=== PATIENT | male | born 1965 | race American Indian/Alaskan Native ===

== ENCOUNTER 2017-03-13 13:26 | Emergency (ER) | payer OTHER ==
[2017-03-13 14:54] VITALS: BP 141/82
--- NOTE | 2017-03-13 17:22 | XRay Report ---
FINAL REPORT PROCEDURE: XR WRIST 2V RT TECHNIQUE: Two views of the right wrist are obtained HISTORY: right wrist pain COMPARISON: No prior studies are available for comparison. FINDINGS: There is no fracture or dislocation. No arthritic changes are seen. IMPRESSION: No abnormalities are seen.
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
== END 2017-03-13 20:39 | disposition home or self-care (01) ==
LOC: ED 13:26
DX: M25.531 Pain in right wrist (principal); M25.511 Pain in right shoulder; J45.909 Unspecified asthma, uncomplicated; V49.49XA Driver injured in collision with other motor vehicles in traffic accident, initial encounter; Y93.89 Activity, other specified; Y92.89 Other specified places as the place of occurrence of the external cause; Y99.8 Other external cause status; Z88.0 Allergy status to penicillin; Z91.013 Allergy to seafood